=== PATIENT | female | born 1935 | race Caucasian/White ===

== ENCOUNTER 2018-05-28 17:13 | Inpatient (IN) | payer OTHER ==
[~2018-05-28] VITALS: Ht 177.8 cm; Wt 74.7 kg
[~2018-05-28 17:13] MED LIST: ALEN70SO OR; ALLO100T PO; CHOL100047 PO; EZET10TA38 PO; HYDR500T13 PO; INDA1.252 PO; LEVO500T21 PO; LOS50T PO; METF-370 PO; METO25TA62 PO; TRAZ50TA2 PO
[2018-05-28] MEDS ORDERED: SODIUM CHLORIDE 0.9% 1,000 ML IVB ONE (17:44)
[2018-05-28 18:03] LABS: Basophils # (auto) 0 uL; Basophils % (auto) 0.2 % (0.0-2.0); Eosinophils # (auto) 0.1 uL; Eosinophils % (auto) 0.3 % (0.0-7.0); Hematocrit 36.1 % (36.0-46.0); Hemoglobin 12.1 g/dL (12.2-16.2); Lymphocytes # (auto) 0.7 uL; Lymphocytes % (auto) 3.6 % (10.0-50.0); Mean Corpuscular Hgb Conc. 33.5 g/dL (32.0-36.0); Mean Corpuscular Volume 86.6 fL (80.0-100.0); Monocytes # (auto) 1.8 uL; Neutrophils # (auto) 17.4 uL; Neutrophils % (auto) 86.9 % (37.0-80.0); Platelet Count (auto) 406 10^3/uL (140-450); Red Blood Cells 4.17 10^6/uL (4.0-5.20); Red Cell Distribution Width 13.3 % (11.8-14.3); White Blood Cell 20.1 10^3/uL (4.4-10.8)
[2018-05-28 18:18] LABS: INR 0.98 (0.9-1.15); Partial Thromboplastin Time 29.6 sec (23.78-33.04); Prothrombin Time 10.5 sec (9.27-12.13)
[2018-05-28] MEDS ORDERED: ONDANSETRON HCL 4 MG/2 ML VIAL IV ONE ×3 (18:30→20:45)
[2018-05-28 18:39] LABS: Albumin 3.5 g/dL (3.4-5.0); BUN/Creatinine Ratio 15.5; Bilirubin, Total 0.9 mg/dL (0.2-1.0); Calcium 8.5 mg/dL (8.5-10.1); Magnesium 2.2 mg/dL (1.6-2.6); Potassium 3.5 mmol/L (3.5-5.1); Total Protein 7.6 g/dL (6.4-8.2)
[2018-05-28] MEDS ORDERED: ACETAMINOPHEN 325 MG TAB PO ONE (18:45)
[2018-05-28] MEDS ORDERED: ASPirin-EC 81 mg tab PO ONE (19:00)
[2018-05-28] MEDS ORDERED: MORPHINE SULF INJ 2 MG/ML SYRINGE 1ML IV ONE ×2 (19:00→20:45)
[2018-05-28] MEDS ORDERED: LACTULOSE 20Gm/30ML SOLN PO PRN (20:45)
[2018-05-28] MEDS ORDERED: NITROGLYCERIN 0.4 MG SL TAB SL PRN (20:45)
[2018-05-28] MEDS ORDERED: LORazepam 0.5 MG TAB PO PRN (20:45)
[2018-05-28] MEDS ORDERED: HEPARIN SODIUM (PORCINE) 5000 UNITS/ML 1ML VIAL ONE (20:52)
[2018-05-28] MEDS ORDERED: HEPARIN SODIUM (PORCINE) 5000 UNITS/ML 1ML VIAL IV ONE ×2 (21:00→23:00)
[2018-05-28 21:04] LABS: Urine Bacteria NONE SEEN /hpf (None Seen); Urine Blood 1+ /uL (Negative); Urine Specific Gravity 1.015 (1.001-1.035); Urine WBC 1569 /hpf (0 - 5); Urine WBC Clumps PRESENT /hpf (None Seen)
[2018-05-28 21:13] LABS: Alcohol, Urine < 3.0 mg/dL (0-5); Amphetamine Screen, Urine NEGATIVE (NEGATIVE); Barbiturate Scree,Urine NEGATIVE (NEGATIVE); Benzodiazephine Screen, Urine NEGATIVE (NEGATIVE); Cannabinoid Screen, Urine NEGATIVE (NEGATIVE); Cocaine Screen, Urine NEGATIVE (NEGATIVE); Opiate Scree,Urine POSITIVE (NEGATIVE); Phencyclidine Screen, Urine NEGATIVE (NEGATIVE)
[2018-05-28] MEDS ORDERED: ANGIOMAX 250 MG VIAL IV ONE (21:27)
[2018-05-28] MEDS ORDERED: LIDOCAINE W/ EPINEPHRINE 2% INJ 20ML VIAL ONE (21:27)
[2018-05-28] MEDS ORDERED: SODIUM CHL 0.9% 50 ML ONE (21:27)
[2018-05-28] MEDS ORDERED: fentaNYL CITRATE 100 MCG/2 ML VL ONE (21:27)
[2018-05-28] MEDS ORDERED: MIDAZOLAM HCL 1MG/1ML-2 ML VIAL ONE (21:27)
[2018-05-28] MEDS ORDERED: IODIXANOL 320MG/ML 100ML BTL IV ONE (21:27)
[2018-05-28] MEDS ORDERED: LIDOCAINE 2%HCL (LOCAL ANESTH.) INJ 10ml MDV ONE (21:28)
[2018-05-28] MEDS ORDERED: ENOXAPARIN SOD 30 MG/0.3 ML SYRINGE IV SCH (22:00)
[2018-05-28] MEDS ORDERED: EPINEPHrine HCL 1 MG/10 ML SYRG ONE (22:04)
[2018-05-28] MEDS ORDERED: ATROPINE SULF 1 MG/10ml SYR ONE (22:04)
[2018-05-28] MEDS: cefTRIAXone 1GM/10ml IVPUSH 10 ML IV SCH (22:15)
[2018-05-28 22:20] LABS: BUN/Creatinine Ratio 17.3; Calcium 7.8 mg/dL (8.5-10.1); Potassium 3.4 mmol/L (3.5-5.1)
[2018-05-28] MEDS ORDERED: HEPARIN DRIP/D5W 100UNITS/ML 250 ML IV SCH ×2 (22:58→23:02)
[2018-05-28] MEDS ORDERED: cefTRIAXone 1GM/10ml IVPUSH 10 ML IV ONE (23:15)
[2018-05-28 23:56] LABS: Basophils # (auto) 0 uL; Basophils % (auto) 0.1 % (0.0-2.0); Eosinophils # (auto) 0 uL; Eosinophils % (auto) 0.1 % (0.0-7.0); Hematocrit 31.6 % (36.0-46.0); Hemoglobin 10.4 g/dL (12.2-16.2); Lymphocytes # (auto) 0.9 uL; Lymphocytes % (auto) 4.6 % (10.0-50.0); Mean Corpuscular Hemoglobin 28.7 pg (28.0-32.0); Mean Corpuscular Hgb Conc. 32.9 g/dL (32.0-36.0); Mean Corpuscular Volume 87.2 fL (80.0-100.0); Monocytes # (auto) 1.9 uL; Monocytes % (auto) 10.1 % (0.0-12.0); Neutrophils # (auto) 15.9 uL; Neutrophils % (auto) 85.1 % (37.0-80.0); Platelet Count (auto) 353 10^3/uL (140-450); Red Blood Cells 3.62 10^6/uL (4.0-5.20); Red Cell Distribution Width 13.3 % (11.8-14.3); White Blood Cell 18.6 10^3/uL (4.4-10.8)
[2018-05-29] VITALS (42 sets, daily range): BP systolic 84–128; BP diastolic 30–89
[2018-05-29 00:11] LABS: INR 1.45 (0.9-1.15); Prothrombin Time 15.2 sec (9.27-12.13)
[2018-05-29] MEDS ORDERED: ONDANSETRON HCL 4 MG/2 ML VIAL ONE (02:57)
[2018-05-29] MEDS: ATORVASTATIN 20 MG TAB PO SCH ×2 (03:19→21:46)
[2018-05-29] MEDS: traZODone HCL 50 MG TAB PO SCH ×2 (03:19→21:46)
[2018-05-29] MEDS: METOPROLOL TARTRATE 25 MG TAB PO SCH ×2 (03:19→04:15)
[2018-05-29] MEDS ORDERED: NOREPINEPHRINE 8 MG/250ML KIT 250 ML IV ONE (04:53)
[2018-05-29 05:30] LABS: Basophils # (auto) 0.1 uL; Basophils % (auto) 0.3 % (0.0-2.0); Eosinophils # (auto) 0 uL; Hemoglobin 10.7 g/dL (12.2-16.2); Lymphocytes # (auto) 0.8 uL; Lymphocytes % (auto) 4.3 % (10.0-50.0); Mean Corpuscular Hgb Conc. 32.6 g/dL (32.0-36.0); Mean Corpuscular Volume 89.1 fL (80.0-100.0); Monocytes # (auto) 1.1 uL; Monocytes % (auto) 6.2 % (0.0-12.0); Neutrophils # (auto) 15.8 uL; Neutrophils % (auto) 89.2 % (37.0-80.0); Platelet Count (auto) 364 10^3/uL (140-450); Red Cell Distribution Width 13.6 % (11.8-14.3); White Blood Cell 17.8 10^3/uL (4.4-10.8)
[2018-05-29 05:36] LABS: INR 1.12 (0.9-1.15); Partial Thromboplastin Time 46.4 sec (23.78-33.04); Prothrombin Time 11.9 sec (9.27-12.13)
[2018-05-29 05:39] LABS: BUN/Creatinine Ratio 16.2; Calcium 7.8 mg/dL (8.5-10.1); Potassium 3.6 mmol/L (3.5-5.1)
[2018-05-29] MEDS: ONDANSETRON HCL 4 MG/2 ML VIAL IV PRN ×2 (06:29→13:49)
[2018-05-29] MEDS ORDERED: FUROSEMIDE 20 MG/2 ML VIAL IV ONE (07:00)
[2018-05-29] MEDS: NOREPINEPHRINE 8 MG/250ML KIT 250 ML IV SCH (07:45)
[2018-05-29] MEDS: HEPARIN DRIP/D5W 100UNITS/ML 250 ML IV SCH ×2 (07:45→16:27)
[2018-05-29] MEDS: cefTRIAXone 1GM/10ml IVPUSH 10 ML IV SCH (08:52)
[2018-05-29] MEDS: MORPHINE SULF INJ 2 MG/ML SYRINGE 1ML IV PRN (10:32)
[2018-05-29 13:59] LABS: INR 1.06 (0.9-1.15); Partial Thromboplastin Time 49.7 sec (23.78-33.04); Prothrombin Time 11.3 sec (9.27-12.13)
[2018-05-29 20:29] LABS: INR 1.07 (0.9-1.15); Partial Thromboplastin Time 60.3 sec (23.78-33.04); Prothrombin Time 11.4 sec (9.27-12.13)
[2018-05-30] VITALS (13 sets, daily range): BP systolic 89–141; BP diastolic 28–101
[2018-05-30] MEDS: MORPHINE SULF INJ 2 MG/ML SYRINGE 1ML IV PRN ×2 (00:13→13:22)
[2018-05-30 02:09] LABS: Basophils # (auto) 0 uL; Basophils % (auto) 0.2 % (0.0-2.0); Eosinophils # (auto) 0.1 uL; Eosinophils % (auto) 0.3 % (0.0-7.0); Hematocrit 27.2 % (36.0-46.0); Lymphocytes # (auto) 0.9 uL; Lymphocytes % (auto) 6.1 % (10.0-50.0); Monocytes # (auto) 1.5 uL; Monocytes % (auto) 10.3 % (0.0-12.0); Neutrophils # (auto) 12.3 uL; Neutrophils % (auto) 83.1 % (37.0-80.0); Platelet Count (auto) 272 10^3/uL (140-450); Red Blood Cells 3.09 10^6/uL (4.0-5.20); Red Cell Distribution Width 13.5 % (11.8-14.3); White Blood Cell 14.8 10^3/uL (4.4-10.8)
[2018-05-30 02:28] LABS: INR 1.08 (0.9-1.15); Partial Thromboplastin Time 67.4 sec (23.78-33.04); Prothrombin Time 11.5 sec (9.27-12.13)
[2018-05-30] MEDS: NOREPINEPHRINE 8 MG/250ML KIT 250 ML IV SCH (08:00)
[2018-05-30] MEDS: HEPARIN DRIP/D5W 100UNITS/ML 250 ML IV SCH (08:12)
[2018-05-30 08:37] LABS: INR 1.04 (0.9-1.15); Partial Thromboplastin Time 64.7 sec (23.78-33.04); Prothrombin Time 11.1 sec (9.27-12.13)
[2018-05-30] MEDS: cefTRIAXone 1GM/10ml IVPUSH 10 ML IV SCH (08:59)
[2018-05-30] MEDS ORDERED: ERTAPENEM SOD INJ 1 GM in SODIUM CHL 0.9% 50 ML IV SCH (11:00)
[2018-05-30] MEDS ORDERED: IPRATROPIUM BROM 0.5 MG/2.5ML INH SOL ONE (11:26)
[2018-05-30] MEDS ORDERED: ALBUTEROL SULF 2.5 MG/0.5ML(0.5%) NEB SOLN ONE (11:26)
[2018-05-30] MEDS ORDERED: ALBUTEROL SULF 2.5 MG/0.5ML(0.5%) NEB SOLN NEB PRN (11:30)
[2018-05-30] MEDS ORDERED: IPRATROPIUM BROM 0.5 MG/2.5ML INH SOL NEB PRN (11:30)
== END 2018-05-30 14:35 | disposition short-term general hospital (02) | DRG 270 ==
LOC: ER 17:17 → TELE 17:18 → ICU WEST 23:44
PROVIDERS: ADMIT Nurse Practitioner Family; ATTEND Nurse Practitioner Family
PROC: 5A02210 Assistance with Cardiac Output using Balloon Pump, Continuous (ICD-10-PCS; principal; 2018-05-28)
PROC: 02703ZZ Dilation of Coronary Artery, One Artery, Percutaneous Approach (ICD-10-PCS; 2018-05-28)
PROC: 4A023N7 Measurement of Cardiac Sampling and Pressure, Left Heart, Percutaneous Approach (ICD-10-PCS; 2018-05-28)
PROC: B2111ZZ Fluoroscopy of Multiple Coronary Arteries using Low Osmolar Contrast (ICD-10-PCS; 2018-05-28)
DX: I21.4 Non-ST elevation (NSTEMI) myocardial infarction (principal); I50.43 Acute on chronic combined systolic (congestive) and diastolic (congestive) heart failure; N39.0 Urinary tract infection, site not specified; R65.10 Systemic inflammatory response syndrome (SIRS) of non-infectious origin without acute organ dysfunction; E11.22 Type 2 diabetes mellitus with diabetic chronic kidney disease; E66.9 Obesity, unspecified; E78.5 Hyperlipidemia, unspecified; I12.9 Hypertensive chronic kidney disease with stage 1 through stage 4 chronic kidney disease, or unspecified chronic kidney disease; I25.10 Atherosclerotic heart disease of native coronary artery without angina pectoris; I35.0 Nonrheumatic aortic (valve) stenosis; M81.0 Age-related osteoporosis without current pathological fracture; M10.9 Gout, unspecified; G47.00 Insomnia, unspecified; N18.9 Chronic kidney disease, unspecified; Z79.4 Long term (current) use of insulin; Z82.49 Family history of ischemic heart disease and other diseases of the circulatory system; Z85.3 Personal history of malignant neoplasm of breast; Z90.13 Acquired absence of bilateral breasts and nipples; Z95.1 Presence of aortocoronary bypass graft; Z82.5 Family history of asthma and other chronic lower respiratory diseases; Z84.89 Family history of other specified conditions; Z68.23 Body mass index [BMI] 23.0-23.9, adult
CPT/HCPCS: 33967; 36415; 51702; 70450; 71045; 80048; 80053; 80061; 80307; 81001; 82550; 83036; 83735; 84484; 85025; 85610; 85652; 85730; 86850; 86900; 86901; 87040; 87081; 87086; 87088; 87186; 92920; 93005; 93306; 93458; 94640; 96361; 96374; 96375; 96376; 99152; A6257; C1887; J0696; J1335; J2001; J2250; J2405; Q9967

== ENCOUNTER 2018-06-12 17:51 | Inpatient (IN) | payer OTHER ==
[~2018-06-12] VITALS: Ht 147.3 cm; Wt 68.4 kg
[2018-06-12] MEDS ORDERED: MORPHINE SULFATE 4 MG/ML SYR/VIAL ONE ×2 (17:58→18:10)
[2018-06-12 18:15] LABS: Eosinophils # (auto) 0.6 uL; Neutrophils # (auto) 13.7 uL
[2018-06-12] MEDS ORDERED: MORPHINE SULFATE 4 MG/ML SYR/VIAL IV ONE ×2 (18:15)
[2018-06-12] MEDS ORDERED: ONDANSETRON HCL 4 MG/2 ML VIAL IV ONE (18:15)
[2018-06-12 18:17] LABS: Basophils # (auto) 0.3 uL; Basophils % (auto) 1.4 % (0.0-2.0); Eosinophils % (auto) 2.9 % (0.0-7.0); Hematocrit 34.3 % (36.0-46.0); Hemoglobin 11.6 g/dL (12.2-16.2); Lymphocytes # (auto) 4.4 uL; Lymphocytes % (auto) 20.8 % (10.0-50.0); Mean Corpuscular Hemoglobin 29.1 pg (28.0-32.0); Mean Corpuscular Hgb Conc. 33.7 g/dL (32.0-36.0); Mean Corpuscular Volume 86.4 fL (80.0-100.0); Monocytes # (auto) 2.2 uL; Monocytes % (auto) 10.4 % (0.0-12.0); Neutrophils % (auto) 64.5 % (37.0-80.0); Nucleated Red Blood Cells % 0.1 %; Red Blood Cells 3.97 10^6/uL (4.0-5.20); Red Cell Distribution Width 13.4 % (11.8-14.3); White Blood Cell 21.3 10^3/uL (4.4-10.8)
[2018-06-12 18:19] LABS: Platelet Count (auto) 1045 10^3/uL (140-450)
[2018-06-12] MEDS ORDERED: LIDOCAINE 2% (LOCAL ANESTH.) PF 5ml SDV ONE (18:22)
[2018-06-12] MEDS ORDERED: IODIXANOL 320MG/ML 100ML BTL IV ONE (18:22)
[2018-06-12] MEDS ORDERED: SODIUM CHL 0.9% 50 ML ONE (18:25)
[2018-06-12] MEDS ORDERED: fentaNYL CITRATE 100 MCG/2 ML VL ONE (18:25)
[2018-06-12] MEDS ORDERED: ATROPINE SULF 1 MG/10ml SYR ONE (18:25)
[2018-06-12] MEDS ORDERED: ANGIOMAX 250 MG VIAL IV ONE (18:25)
[2018-06-12] MEDS ORDERED: EPINEPHrine HCL 1 MG/10 ML SYRG ONE (18:25)
[2018-06-12] MEDS ORDERED: MIDAZOLAM HCL 1MG/1ML-2 ML VIAL ONE (18:25)
[2018-06-12 18:30] LABS: Partial Thromboplastin Time 28.4 sec (23.78-33.04); Prothrombin Time 10.7 sec (9.27-12.13)
[2018-06-12 18:37] LABS: Albumin 3.7 g/dL (3.4-5.0); BUN/Creatinine Ratio 17.9; Bilirubin, Total 0.5 mg/dL (0.2-1.0); Calcium 9.5 mg/dL (8.5-10.1); Magnesium 2.2 mg/dL (1.6-2.6); Potassium 4.5 mmol/L (3.5-5.1); Total Protein 8.8 g/dL (6.4-8.2)
[2018-06-12] MEDS ORDERED: hydrALAZINE HCL 20 MG/ML VL ONE (18:44)
[2018-06-12] MEDS ORDERED: METOPROLOL TARTRATE 1MG/1ML-5ML VIAL IV ONE (18:53)
[2018-06-12] MEDS ORDERED: HYDROXYUREA 500 MG CAP PO ONE (19:00)
[2018-06-12] MEDS ORDERED: cefTRIAXone 1GM/10ml IVPUSH 10 ML IV ONE ×2 (19:00→19:15)
[2018-06-12] MEDS ORDERED: CLOPIDOGREL BISULFATE 75 MG TAB ONE (19:14)
[2018-06-12] MEDS ORDERED: DEXTROSE (50%) 50ML SYRG IV PRN (19:15)
[2018-06-12] MEDS ORDERED: NITROGLYCERIN 0.4 MG SL TAB SL PRN (19:15)
[2018-06-12] MEDS ORDERED: HYDROcodone-ACET 5/325MG TAB PO PRN (19:15)
[2018-06-12] MEDS ORDERED: LACTULOSE 20Gm/30ML SOLN PO PRN (19:15)
[2018-06-12] MEDS ORDERED: MORPHINE SULF INJ 2 MG/ML SYRINGE 1ML IV PRN ×2 (19:15)
[2018-06-12] MEDS ORDERED: PROMETHAZINE HCL 25 MG/ML 1ML IV PRN (19:15)
[2018-06-12] MEDS ORDERED: LORazepam 0.5 MG TAB PO PRN (19:15)
[2018-06-12] MEDS ORDERED: ACETAMINOPHEN 500 MG TAB PO PRN (19:15)
[2018-06-12 19:45] VITALS: BP 104/45
[2018-06-12] MEDS ORDERED: SODIUM CHLORIDE 0.9% 1,000 ML IV SCH (19:59)
[2018-06-12 20:00] VITALS: BP 104/45
[2018-06-12 20:30] VITALS: BP 113/56
[2018-06-12 20:45] VITALS: BP 113/56
[2018-06-12] MEDS: ATORVASTATIN 20 MG TAB PO SCH (21:52)
[2018-06-12] MEDS: InsuLIN REG 1unit/0.01ml Soln (100units/ml) SC SCH (21:53)
[2018-06-12] MEDS: ACCU-CHEK COMFORT CURVE STRIP VI SCH (21:53)
[2018-06-12] MEDS ORDERED: ENOXAPARIN SOD 80 MG/0.8ML SYRINGE SC SCH (22:00)
[2018-06-12] MEDS ORDERED: traZODone HCL 50 MG TAB PO SCH (22:00)
[2018-06-12 23:50] VITALS: BP 116/48
[2018-06-13] MEDS ORDERED: diphenhdrAMINE HCL 50 MG/1 ML VL ONE (02:44)
[2018-06-13] MEDS ORDERED: diphenhdrAMINE HCL 50 MG/1 ML VL IV ONE (02:45)
[2018-06-13 03:25] LABS: Urine Bacteria MANY /hpf (None Seen); Urine Blood Negative /uL (Negative); Urine Hyaline Cast MOD /lpf (0 - 2); Urine Mucus MANY (None Seen); Urine WBC 204 /hpf (0 - 5); Urine WBC Clumps PRESENT /hpf (None Seen)
[2018-06-13 03:27] LABS: Urine Specific Gravity 1.056 (1.001-1.035)
[2018-06-13 03:58] VITALS: BP 115/42
[2018-06-13] MEDS: InsuLIN REG 1unit/0.01ml Soln (100units/ml) SC SCH ×4 (06:22→21:56)
[2018-06-13] MEDS: ACCU-CHEK COMFORT CURVE STRIP VI SCH ×4 (06:22→21:56)
[2018-06-13 07:09] LABS: Basophils # (auto) 0 uL; Basophils % (auto) 0.1 % (0.0-2.0); Eosinophils # (auto) 0.5 uL; Eosinophils % (auto) 3.2 % (0.0-7.0); Hematocrit 28.1 % (36.0-46.0); Hemoglobin 9.3 g/dL (12.2-16.2); Lymphocytes # (auto) 1.3 uL; Lymphocytes % (auto) 8.4 % (10.0-50.0); Mean Corpuscular Hgb Conc. 33.3 g/dL (32.0-36.0); Mean Corpuscular Volume 87.1 fL (80.0-100.0); Monocytes % (auto) 6.2 % (0.0-12.0); Neutrophils # (auto) 12.8 uL; Neutrophils % (auto) 82.1 % (37.0-80.0); Platelet Count (auto) 747 10^3/uL (140-450); Red Blood Cells 3.22 10^6/uL (4.0-5.20); Red Cell Distribution Width 13.3 % (11.8-14.3); White Blood Cell 15.6 10^3/uL (4.4-10.8)
[2018-06-13 07:16] LABS: Albumin 2.9 g/dL (3.4-5.0); Bilirubin, Total 0.4 mg/dL (0.2-1.0); Calcium 8.1 mg/dL (8.5-10.1); Potassium 3.9 mmol/L (3.5-5.1); Total Protein 6.8 g/dL (6.4-8.2)
[2018-06-13 08:00] VITALS: BP 111/62
[2018-06-13] MEDS ORDERED: cefTRIAXone 1GM/10ml IVPUSH 10 ML IV SCH ×2 (09:00)
[2018-06-13] MEDS: METOPROLOL SUCCINATE XL 50 MG TAB PO SCH (10:00)
[2018-06-13] MEDS: LOSARTAN POTASSIUM 50 MG TAB PO SCH (10:00)
[2018-06-13] MEDS ORDERED: PANTOPRAZOLE 40 MG TAB PO SCH (10:00)
[2018-06-13] MEDS: ENOXAPARIN SOD 80 MG/0.8ML SYRINGE SC SCH (10:10)
[2018-06-13] MEDS: ALLOPURINOL 100 MG TAB PO SCH (10:11)
[2018-06-13] MEDS: CLOPIDOGREL BISULFATE 75 MG TAB PO SCH (10:11)
[2018-06-13] MEDS: ASPirin 81 mg TAB PO SCH (10:11)
[2018-06-13] MEDS: HYDROXYUREA 500 MG CAP PO SCH (10:15)
[2018-06-13] MEDS ORDERED: diphenhdrAMINE HCL 50 MG/1 ML VL IV PRN (10:30)
[2018-06-13] MEDS: methylPREDNISolone SOD SUCC 125 MG/2 ML VL IV SCH ×2 (11:00→21:56)
[2018-06-13 12:00] VITALS: BP 103/50
[2018-06-13 13:06] LABS: Hemoglobin 8.9 g/dL (12.2-16.2)
[2018-06-13 13:15] LABS: Hematocrit 27.1 % (36.0-46.0)
[2018-06-13] MEDS ORDERED: ATOR20TA50 PO (15:00)
[2018-06-13] MEDS ORDERED: CLOP75TA41 PO (15:00)
[2018-06-13] MEDS ORDERED: FURO40TA4 PO (15:00)
[2018-06-13] MEDS ORDERED: FENO134C PO (15:00)
[2018-06-13] MEDS ORDERED: LACT10SO3 PO (15:00)
[2018-06-13] MEDS ORDERED: LORA1TAB12 PO (15:00)
[2018-06-13] MEDS ORDERED: POTA10TA51 PO (15:00)
[2018-06-13] MEDS ORDERED: METF-370 PO (15:00)
[2018-06-13] MEDS ORDERED: hydrOXYzine 25 MG TAB or CAP PO PRN (15:45)
[2018-06-13 16:00] VITALS: BP 131/48
[2018-06-13 20:00] VITALS: BP 125/58
[2018-06-13] MEDS: ATORVASTATIN 20 MG TAB PO SCH (21:03)
[2018-06-13] MEDS: TEMAZEPAM 15 MG CAP PO PRN (21:03)
[2018-06-13 22:05] LABS: % Iron Saturation 17.1 % (15-50)
[2018-06-14] VITALS: BP 118/62
[2018-06-14 04:00] VITALS: BP 121/58
[2018-06-14 05:41] LABS: BUN/Creatinine Ratio 17.2; Calcium 8.1 mg/dL (8.5-10.1); Potassium 4.6 mmol/L (3.5-5.1)
[2018-06-14] MEDS: ACCU-CHEK COMFORT CURVE STRIP VI SCH ×4 (06:20→21:29)
[2018-06-14] MEDS: InsuLIN REG 1unit/0.01ml Soln (100units/ml) SC SCH ×4 (06:21→21:29)
[2018-06-14 07:50] VITALS: BP 138/65
[2018-06-14] MEDS: LOSARTAN POTASSIUM 50 MG TAB PO SCH (10:00)
[2018-06-14] MEDS: methylPREDNISolone SOD SUCC 125 MG/2 ML VL IV SCH ×2 (10:32→21:34)
[2018-06-14] MEDS: ASPirin 81 mg TAB PO SCH (10:32)
[2018-06-14] MEDS: FAMOTIDINE 20 MG TAB PO SCH (10:32)
[2018-06-14] MEDS: ALLOPURINOL 100 MG TAB PO SCH (10:33)
[2018-06-14] MEDS: ENOXAPARIN SOD 80 MG/0.8ML SYRINGE SC SCH (10:33)
[2018-06-14] MEDS: CLOPIDOGREL BISULFATE 75 MG TAB PO SCH (10:33)
[2018-06-14] MEDS: METOPROLOL SUCCINATE XL 50 MG TAB PO SCH (10:35)
[2018-06-14 10:48] LABS: Basophils # (auto) 0 uL; Basophils % (auto) 0.1 % (0.0-2.0); Eosinophils # (auto) 0 uL; Hemoglobin 9.1 g/dL (12.2-16.2); Monocytes # (auto) 0.3 uL; Red Blood Cells 3.09 10^6/uL (4.0-5.20)
[2018-06-14 10:56] LABS: Hematocrit 27.1 % (36.0-46.0); Lymphocytes # (auto) 0.6 uL; Lymphocytes % (auto) 3.9 % (10.0-50.0); Mean Corpuscular Hemoglobin 29.5 pg (28.0-32.0); Mean Corpuscular Hgb Conc. 33.6 g/dL (32.0-36.0); Mean Corpuscular Volume 87.8 fL (80.0-100.0); Monocytes % (auto) 1.9 % (0.0-12.0); Neutrophils # (auto) 13.6 uL; Neutrophils % (auto) 94.1 % (37.0-80.0); Platelet Count (auto) 733 10^3/uL (140-450); Red Cell Distribution Width 13.7 % (11.8-14.3); White Blood Cell 14.5 10^3/uL (4.4-10.8)
[2018-06-14 11:53] VITALS: BP 123/59
[2018-06-14] MEDS: HYDROXYUREA 500 MG CAP PO SCH (12:01)
[2018-06-14] MEDS ORDERED: FUROSEMIDE 20 MG/2 ML VIAL IV ONE (15:00)
[2018-06-14] MEDS ORDERED: POTASSIUM CHL 20 Meq TABLET PO ONE (15:00)
[2018-06-14] MEDS: LEVOFLOXACIN 500MG 100 ML IV SCH (15:14)
[2018-06-14 15:30] VITALS: BP 129/61
[2018-06-14 20:00] VITALS: BP 141/69
[2018-06-14] MEDS: ATORVASTATIN 20 MG TAB PO SCH (21:34)
[2018-06-14] MEDS: FUROSEMIDE 20 MG/2 ML VIAL IV SCH (21:34)
[2018-06-14] MEDS: TEMAZEPAM 15 MG CAP PO PRN (21:34)
[2018-06-14] MEDS: POTASSIUM CHL 20 Meq TABLET PO SCH (21:34)
[2018-06-15] VITALS (16 sets, daily range): BP systolic 123–144; BP diastolic 47–87
[2018-06-15 05:31] LABS: Eosinophils # (auto) 0 uL; Lymphocytes # (auto) 0.5 uL
[2018-06-15 05:35] LABS: Basophils # (auto) 0.1 uL; Basophils % (auto) 0.4 % (0.0-2.0); Hematocrit 29.8 % (36.0-46.0); Hemoglobin 9.6 g/dL (12.2-16.2); Mean Corpuscular Hemoglobin 28.5 pg (28.0-32.0); Mean Corpuscular Hgb Conc. 32.3 g/dL (32.0-36.0); Mean Corpuscular Volume 88.2 fL (80.0-100.0); Monocytes # (auto) 0.3 uL; Neutrophils # (auto) 15.2 uL; Neutrophils % (auto) 94.6 % (37.0-80.0); Red Blood Cells 3.38 10^6/uL (4.0-5.20); Red Cell Distribution Width 13.5 % (11.8-14.3); White Blood Cell 16.1 10^3/uL (4.4-10.8)
[2018-06-15 05:38] LABS: Platelet Count (auto) 770 10^3/uL (140-450)
[2018-06-15 05:46] LABS: Calcium 8.7 mg/dL (8.5-10.1); Potassium 4.7 mmol/L (3.5-5.1)
[2018-06-15 05:48] LABS: BUN/Creatinine Ratio 25.6
[2018-06-15] MEDS: ACCU-CHEK COMFORT CURVE STRIP VI SCH ×4 (05:59→21:30)
[2018-06-15] MEDS: InsuLIN REG 1unit/0.01ml Soln (100units/ml) SC SCH ×4 (05:59→21:44)
[2018-06-15 06:25] LABS: INR 1.01 (0.9-1.15); Prothrombin Time 10.8 sec (9.27-12.13)
[2018-06-15 07:21] LABS: Partial Thromboplastin Time 27.1 sec (23.78-33.04)
[2018-06-15] MEDS ORDERED: HYDROXYUREA 500 MG CAP PO ONE (08:45)
[2018-06-15] MEDS ORDERED: LIDOCAINE 2%HCL (LOCAL ANESTH.) INJ 10ml MDV ONE (09:13)
[2018-06-15] MEDS ORDERED: IODIXANOL 320MG/ML 100ML BTL IV ONE (09:13)
[2018-06-15] MEDS ORDERED: ANGIOMAX 250 MG VIAL IV ONE (09:27)
[2018-06-15] MEDS ORDERED: MIDAZOLAM HCL 1MG/1ML-2 ML VIAL ONE (09:27)
[2018-06-15] MEDS ORDERED: SODIUM CHL 0.9% 50 ML ONE (09:27)
[2018-06-15] MEDS ORDERED: fentaNYL CITRATE 100 MCG/2 ML VL ONE (09:27)
[2018-06-15] MEDS: ENOXAPARIN SOD 80 MG/0.8ML SYRINGE SC SCH (10:00)
[2018-06-15] MEDS: POTASSIUM CHL 20 Meq TABLET PO SCH ×2 (10:00→21:30)
[2018-06-15] MEDS ORDERED: POTASSIUM CHL 20 Meq TABLET PO SCH (10:00)
[2018-06-15] MEDS: ALLOPURINOL 100 MG TAB PO SCH (10:00)
[2018-06-15] MEDS: METOPROLOL SUCCINATE XL 50 MG TAB PO SCH (10:00)
[2018-06-15] MEDS: ASPirin 81 mg TAB PO SCH ×2 (10:00→10:46)
[2018-06-15] MEDS: HYDROXYUREA 500 MG CAP PO SCH (10:00)
[2018-06-15] MEDS: CLOPIDOGREL BISULFATE 75 MG TAB PO SCH ×2 (10:00→10:46)
[2018-06-15] MEDS: LEVOFLOXACIN 500MG 100 ML IV SCH (10:00)
[2018-06-15] MEDS: FUROSEMIDE 20 MG/2 ML VIAL IV SCH ×2 (10:00→21:30)
[2018-06-15] MEDS: LOSARTAN POTASSIUM 50 MG TAB PO SCH (10:00)
[2018-06-15] MEDS: FAMOTIDINE 20 MG TAB PO SCH (10:00)
[2018-06-15] MEDS: SODIUM FERR GLUC 62.5MG/5ML 125 MG in SODIUM CHL 0.9% 100 ML IV SCH (12:07)
[2018-06-15] MEDS: ERTAPENEM SOD INJ 1 GM in SODIUM CHL 0.9% 50 ML IV SCH (14:17)
[2018-06-15] MEDS: ATORVASTATIN 20 MG TAB PO SCH (21:30)
[2018-06-16 03:53] VITALS: BP 110/59
[2018-06-16 05:59] LABS: Potassium 4.5 mmol/L (3.5-5.1)
[2018-06-16 06:01] LABS: BUN/Creatinine Ratio 31.4; Calcium 8.4 mg/dL (8.5-10.1); Magnesium 2.3 mg/dL (1.6-2.6)
[2018-06-16] MEDS: ACCU-CHEK COMFORT CURVE STRIP VI SCH ×4 (06:42→22:29)
[2018-06-16] MEDS: InsuLIN REG 1unit/0.01ml Soln (100units/ml) SC SCH ×4 (06:42→22:28)
[2018-06-16 07:44] LABS: Basophils # (auto) 0 uL; Eosinophils # (auto) 0 uL; Lymphocytes # (auto) 0.8 uL; Neutrophils # (auto) 12.1 uL
[2018-06-16 07:46] LABS: Basophils % (auto) 0.1 % (0.0-2.0); Lymphocytes % (auto) 5.3 % (10.0-50.0); Mean Corpuscular Hemoglobin 29.3 pg (28.0-32.0); Mean Corpuscular Hgb Conc. 33.3 g/dL (32.0-36.0); Monocytes # (auto) 1.3 uL; Neutrophils % (auto) 85.6 % (37.0-80.0); Platelet Count (auto) 700 10^3/uL (140-450); Red Blood Cells 3.07 10^6/uL (4.0-5.20); Red Cell Distribution Width 13.5 % (11.8-14.3); White Blood Cell 14.1 10^3/uL (4.4-10.8)
[2018-06-16 08:00] VITALS: BP 123/62
[2018-06-16] MEDS: METOPROLOL SUCCINATE XL 50 MG TAB PO SCH (10:00)
[2018-06-16] MEDS: HYDROXYUREA 500 MG CAP PO SCH (10:00)
[2018-06-16] MEDS: LOSARTAN POTASSIUM 50 MG TAB PO SCH (10:00)
[2018-06-16] MEDS: ERTAPENEM SOD INJ 1 GM in SODIUM CHL 0.9% 50 ML IV SCH (10:25)
[2018-06-16] MEDS: ENOXAPARIN SOD 80 MG/0.8ML SYRINGE SC SCH (10:25)
[2018-06-16] MEDS: FAMOTIDINE 20 MG TAB PO SCH (10:25)
[2018-06-16] MEDS: ASPirin 81 mg TAB PO SCH (10:26)
[2018-06-16] MEDS: POTASSIUM CHL 20 Meq TABLET PO SCH ×2 (10:26→22:28)
[2018-06-16] MEDS: ALLOPURINOL 100 MG TAB PO SCH (10:26)
[2018-06-16] MEDS: CLOPIDOGREL BISULFATE 75 MG TAB PO SCH (10:26)
[2018-06-16] MEDS: FUROSEMIDE 20 MG/2 ML VIAL IV SCH ×2 (10:28→22:28)
[2018-06-16 11:50] VITALS: BP 125/63
[2018-06-16] MEDS: SODIUM FERR GLUC 62.5MG/5ML 125 MG in SODIUM CHL 0.9% 100 ML IV SCH ×2 (12:00→14:50)
[2018-06-16 15:51] VITALS: BP 131/86
[2018-06-16 19:50] VITALS: BP 135/94
[2018-06-16] MEDS: ATORVASTATIN 20 MG TAB PO SCH (22:28)
[2018-06-17] VITALS: BP 128/67
[2018-06-17 04:00] VITALS: BP 135/65
[2018-06-17] MEDS: ACCU-CHEK COMFORT CURVE STRIP VI SCH ×3 (07:00→17:00)
[2018-06-17] MEDS: InsuLIN REG 1unit/0.01ml Soln (100units/ml) SC SCH ×3 (07:00→17:00)
[2018-06-17 08:00] VITALS: BP 141/60
[2018-06-17 08:58] LABS: Basophils # (auto) 0.1 uL; Monocytes # (auto) 1.1 uL; White Blood Cell 12.3 10^3/uL (4.4-10.8)
[2018-06-17 09:02] LABS: Basophils % (auto) 0.9 % (0.0-2.0); Eosinophils # (auto) 0.5 uL; Eosinophils % (auto) 3.8 % (0.0-7.0); Hematocrit 31.2 % (36.0-46.0); Hemoglobin 10.6 g/dL (12.2-16.2); Lymphocytes % (auto) 16.2 % (10.0-50.0); Mean Corpuscular Hemoglobin 29.4 pg (28.0-32.0); Mean Corpuscular Hgb Conc. 33.9 g/dL (32.0-36.0); Mean Corpuscular Volume 86.9 fL (80.0-100.0); Monocytes % (auto) 8.9 % (0.0-12.0); Neutrophils # (auto) 8.6 uL; Neutrophils % (auto) 70.2 % (37.0-80.0); Red Blood Cells 3.59 10^6/uL (4.0-5.20); Red Cell Distribution Width 13.9 % (11.8-14.3)
[2018-06-17] MEDS ORDERED: HYD500C PO (09:06)
[2018-06-17] MEDS ORDERED: INVANZ IV (09:06)
[2018-06-17] MEDS ORDERED: CLOP75TA41 PO (09:06)
[2018-06-17] MEDS ORDERED: FURO20TA PO (09:06)
[2018-06-17] MEDS ORDERED: ATOR20TA50 PO (09:06)
[2018-06-17] MEDS ORDERED: ASPI81CH43 PO (09:06)
[2018-06-17] MEDS ORDERED: POTA-165 PO (09:06)
[2018-06-17 09:17] LABS: BUN/Creatinine Ratio 28.3; Calcium 8.7 mg/dL (8.5-10.1); Magnesium 2.5 mg/dL (1.6-2.6); Potassium 4.4 mmol/L (3.5-5.1)
[2018-06-17 09:19] LABS: Platelet Count (auto) 742 10^3/uL (140-450)
[2018-06-17] MEDS: LOSARTAN POTASSIUM 50 MG TAB PO SCH (10:00)
[2018-06-17] MEDS: ENOXAPARIN SOD 80 MG/0.8ML SYRINGE SC SCH (10:00)
[2018-06-17] MEDS: METOPROLOL SUCCINATE XL 50 MG TAB PO SCH (10:00)
[2018-06-17] MEDS: ALLOPURINOL 100 MG TAB PO SCH (10:09)
[2018-06-17] MEDS: POTASSIUM CHL 20 Meq TABLET PO SCH (10:09)
[2018-06-17] MEDS: ASPirin 81 mg TAB PO SCH (10:09)
[2018-06-17] MEDS: ERTAPENEM SOD INJ 1 GM in SODIUM CHL 0.9% 50 ML IV SCH (10:09)
[2018-06-17] MEDS: HYDROXYUREA 500 MG CAP PO SCH (10:11)
[2018-06-17] MEDS: CLOPIDOGREL BISULFATE 75 MG TAB PO SCH (10:11)
[2018-06-17] MEDS: FAMOTIDINE 20 MG TAB PO SCH (10:11)
[2018-06-17] MEDS: FUROSEMIDE 20 MG/2 ML VIAL IV SCH (10:11)
[2018-06-17 12:05] VITALS: BP 135/65
[2018-06-17] MEDS ORDERED: LIDOCAINE 1% (LOCAL ANESTH.) PF 5ml SDV ID ONE (12:15)
[2018-06-17] MEDS: SODIUM FERR GLUC 62.5MG/5ML 125 MG in SODIUM CHL 0.9% 100 ML IV SCH (15:14)
[2018-06-17 15:53] VITALS: BP 128/63
[2018-06-17] MEDS ORDERED: SODIUM CHLOR 0.9% PF (SALINE LOCK) 10ML VIAL/SYR IV SCH (22:00)
== END 2018-06-17 19:09 | disposition home health service (06) | DRG 246 ==
LOC: ER 17:52 → CATH 1 18:11 → ICU CENTRL 18:12 → DOU IN ICU 19:49
PROVIDERS: ADMIT Internal Medicine; ATTEND Hospitalist
PROC: B2111ZZ Fluoroscopy of Multiple Coronary Arteries using Low Osmolar Contrast (ICD-10-PCS; principal; 2018-06-12)
PROC: 4A023N7 Measurement of Cardiac Sampling and Pressure, Left Heart, Percutaneous Approach (ICD-10-PCS; 2018-06-12)
PROC: B2151ZZ Fluoroscopy of Left Heart using Low Osmolar Contrast (ICD-10-PCS; 2018-06-12)
PROC: 027035Z Dilation of Coronary Artery, One Artery with Two Drug-eluting Intraluminal Devices, Percutaneous Approach (ICD-10-PCS; 2018-06-15)
PROC: 4A023N7 Measurement of Cardiac Sampling and Pressure, Left Heart, Percutaneous Approach (ICD-10-PCS; 2018-06-15)
PROC: B2111ZZ Fluoroscopy of Multiple Coronary Arteries using Low Osmolar Contrast (ICD-10-PCS; 2018-06-15)
PROC: 02HV33Z Insertion of Infusion Device into Superior Vena Cava, Percutaneous Approach (ICD-10-PCS; 2018-06-17)
DX: T82.855A Stenosis of coronary artery stent, initial encounter (principal); I21.3 ST elevation (STEMI) myocardial infarction of unspecified site; I50.31 Acute diastolic (congestive) heart failure; N39.0 Urinary tract infection, site not specified; I13.0 Hypertensive heart and chronic kidney disease with heart failure and stage 1 through stage 4 chronic kidney disease, or unspecified chronic kidney disease; I16.1 Hypertensive emergency; Y83.8 Other surgical procedures as the cause of abnormal reaction of the patient, or of later complication, without mention of misadventure at the time of the procedure; I35.0 Nonrheumatic aortic (valve) stenosis; N18.3 Chronic kidney disease, stage 3 (moderate); E11.22 Type 2 diabetes mellitus with diabetic chronic kidney disease; D50.9 Iron deficiency anemia, unspecified; F41.9 Anxiety disorder, unspecified; E78.5 Hyperlipidemia, unspecified; B96.20 Unspecified Escherichia coli [E. coli] as the cause of diseases classified elsewhere; G47.00 Insomnia, unspecified; D72.829 Elevated white blood cell count, unspecified; M10.9 Gout, unspecified; R79.89 Other specified abnormal findings of blood chemistry; I25.10 Atherosclerotic heart disease of native coronary artery without angina pectoris; I25.2 Old myocardial infarction; Z88.8 Allergy status to other drugs, medicaments and biological substances; Y92.89 Other specified places as the place of occurrence of the external cause; Z80.9 Family history of malignant neoplasm, unspecified; Z82.49 Family history of ischemic heart disease and other diseases of the circulatory system; Z82.5 Family history of asthma and other chronic lower respiratory diseases; Z85.3 Personal history of malignant neoplasm of breast
CPT/HCPCS: 36415; 36600; 51702; 71045; 80048; 80053; 80061; 81001; 82550; 82728; 82805; 82962; 83036; 83540; 83550; 83735; 83880; 84443; 84484; 85014; 85018; 85025; 85610; 85652; 85730; 86850; 86900; 86901; 87040; 87081; 87086; 87088; 87186; 92928; 93005; 93458; 94761; 96374; 96375; 97163; 99152; A6257; C1874; J0696; J1335; J1815; J1956; J2001; J2250; J2405; Q9967

== ENCOUNTER 2018-06-19 12:38 | Inpatient (IN) | payer OTHER ==
[~2018-06-19] VITALS: Ht 147.3 cm; Wt 78.1 kg
[2018-06-19] VITALS (37 sets, daily range): BP systolic 23–165; BP diastolic 10–90
[~2018-06-19 12:38] MED LIST changes: +ASPI81CH43 PO; +ATOR20TA50 PO; +CLOP75TA41 PO; -EZET10TA38 PO; +FENO134C PO; +FURO20TA PO; +HYD500C PO; -INDA1.252 PO; +INVANZ IV; +LACT10SO3 PO; -LEVO500T21 PO; +LORA1TAB12 PO; +POTA-180 PO; -TRAZ50TA2 PO
[2018-06-19] MEDS ORDERED: IODIXANOL 320MG/ML 100ML BTL IV ONE (13:05)
[2018-06-19] MEDS ORDERED: LIDOCAINE 2% (LOCAL ANESTH.) PF 5ml SDV ONE (13:05)
[2018-06-19] MEDS ORDERED: MORPHINE SULF INJ 2 MG/ML SYRINGE 1ML ONE ×2 (13:06→14:10)
[2018-06-19] MEDS ORDERED: HEPARIN SODIUM (PORCINE) 5000 UNITS/ML 1ML VIAL ONE ×2 (13:07→13:08)
[2018-06-19] MEDS ORDERED: fentaNYL CITRATE 100 MCG/2 ML VL ONE (13:07)
[2018-06-19] MEDS ORDERED: MIDAZOLAM HCL 1MG/1ML-2 ML VIAL ONE ×4 (13:07→14:44)
[2018-06-19] MEDS ORDERED: ANGIOMAX 250 MG VIAL IV ONE (13:07)
[2018-06-19] MEDS ORDERED: EPTIFIBATIDE DRIP(0.75MG/ML) 0 ML IV ONE (13:08)
[2018-06-19] MEDS ORDERED: ONDANSETRON HCL 4 MG/2 ML VIAL ONE ×2 (13:08→14:14)
[2018-06-19] MEDS ORDERED: ATROPINE SULF 1 MG/10ml SYR ONE (13:08)
[2018-06-19] MEDS ORDERED: EPTIFIBATIDE INJ (2MG/ML) 10ML VIAL IV ONE (13:08)
[2018-06-19] MEDS ORDERED: SODIUM CHL 0.9% 50 ML ONE (13:08)
[2018-06-19] MEDS ORDERED: EPINEPHrine HCL 1 MG/10 ML SYRG ONE (13:09)
[2018-06-19] MEDS ORDERED: MORPHINE SULF INJ 2 MG/ML SYRINGE 1ML IV ONE (13:15)
[2018-06-19] MEDS ORDERED: ONDANSETRON HCL 4 MG/2 ML VIAL IV ONE (13:15)
[2018-06-19] MEDS ORDERED: HEPARIN SODIUM (PORCINE) 5000 UNITS/ML 1ML VIAL IV ONE (13:15)
[2018-06-19 13:34] LABS: Basophils # (auto) 0.2 uL; Eosinophils # (auto) 1.2 uL
[2018-06-19 13:37] LABS: Eosinophils % (auto) 6.4 % (0.0-7.0); Hematocrit 32.6 % (36.0-46.0); Hemoglobin 11.1 g/dL (12.2-16.2); Lymphocytes % (auto) 28.1 % (10.0-50.0); Mean Corpuscular Hemoglobin 29.9 pg (28.0-32.0); Monocytes # (auto) 2.2 uL; Monocytes % (auto) 12.2 % (0.0-12.0); Neutrophils # (auto) 9.4 uL; Neutrophils % (auto) 52.3 % (37.0-80.0); Red Blood Cells 3.71 10^6/uL (4.0-5.20); Red Cell Distribution Width 14.4 % (11.8-14.3); White Blood Cell 17.9 10^3/uL (4.4-10.8)
[2018-06-19] MEDS ORDERED: NOREPINEPHRINE 8 MG/250ML KIT 250 ML IV ONE (13:52)
[2018-06-19 13:59] LABS: Platelet Count (auto) 1024 10^3/uL (140-450)
[2018-06-19 14:00] LABS: Partial Thromboplastin Time 26.6 sec (23.78-33.04); Prothrombin Time 10.7 sec (9.27-12.13)
[2018-06-19] MEDS ORDERED: ADENOSINE 6 MG/2 ML INJ IV ONE (14:03)
[2018-06-19 14:04] LABS: Albumin 3.1 g/dL (3.4-5.0); BUN/Creatinine Ratio 20.8; Calcium 8.7 mg/dL (8.5-10.1); Magnesium 2.2 mg/dL (1.6-2.6); Potassium 3.9 mmol/L (3.5-5.1)
[2018-06-19 14:22] LABS: Bilirubin, Total 0.6 mg/dL (0.2-1.0); Total Protein 7.4 g/dL (6.4-8.2)
[2018-06-19] MEDS ORDERED: MIDAZOLAM DRIP 50 mg/50mL 50 ML IV ONE (15:14)
[2018-06-19] MEDS ORDERED: ASPirin 81 mg TAB PO ONE (15:45)
[2018-06-19] MEDS ORDERED: CLOPIDOGREL BISULFATE 75 MG TAB PO ONE (15:45)
[2018-06-19] MEDS: MIDAZOLAM DRIP 50 mg/50mL 50 ML IV SCH (15:50)
[2018-06-19 16:46] LABS: Urine Bacteria FEW /hpf (None Seen); Urine Blood Negative /uL (Negative); Urine Specific Gravity 1.038 (1.001-1.035); Urine WBC 5 /hpf (0 - 5)
[2018-06-19] MEDS: fentaNYL Drip 2500mCg/250mlNS 250 ML IV SCH (17:30)
[2018-06-19] MEDS: NOREPINEPHRINE 8 MG/250ML KIT 250 ML IV SCH ×2 (18:03→22:46)
[2018-06-19] MEDS ORDERED: DEXTROSE (50%) 50ML SYRG IV PRN (18:30)
[2018-06-19] MEDS: CEFTRIAXONE SODIUM 1 GM in D5W 5% 50 ML IV SCH (19:51)
[2018-06-19] MEDS ORDERED: FAMOTIDINE (10MG/ML) 2ML VL IV ONE (20:00)
[2018-06-19] MEDS ORDERED: DOBUTamine 1000MCG/ML 250 ML IV ONE (21:04)
[2018-06-19] MEDS ORDERED: FUROSEMIDE 20 MG/2 ML VIAL ONE (21:11)
[2018-06-19] MEDS: DOBUTamine 1000MCG/ML 250 ML IV SCH (21:15)
[2018-06-19] MEDS ORDERED: FUROSEMIDE 20 MG/2 ML VIAL IV SCH (22:00)
[2018-06-19] MEDS: ACCU-CHEK COMFORT CURVE STRIP VI SCH (22:40)
[2018-06-19] MEDS: InsuLIN REG 1unit/0.01ml Soln (100units/ml) SC SCH (22:45)
[2018-06-20] VITALS (102 sets, daily range): BP systolic 0–120; BP diastolic 0–89
[2018-06-20] MEDS ORDERED: D5W/SOD CHL 0.45% 1,000 ML IV SCH ×3 (00:30→20:15)
[2018-06-20] MEDS: MIDAZOLAM DRIP 50 mg/50mL 50 ML IV SCH (03:41)
[2018-06-20] MEDS: FUROSEMIDE 20 MG/2 ML VIAL IV SCH ×4 (03:42→17:42)
[2018-06-20 04:29] LABS: Basophils # (auto) 0.1 uL; Eosinophils # (auto) 0.1 uL; Mean Corpuscular Hemoglobin 29.1 pg (28.0-32.0); Monocytes # (auto) 2.1 uL
[2018-06-20 04:31] LABS: Basophils % (auto) 0.5 % (0.0-2.0); Eosinophils % (auto) 0.5 % (0.0-7.0); Hematocrit 28.5 % (36.0-46.0); Hemoglobin 9.4 g/dL (12.2-16.2); Lymphocytes # (auto) 1.9 uL; Mean Corpuscular Volume 88.3 fL (80.0-100.0); Neutrophils # (auto) 16.5 uL; Platelet Count (auto) 613 10^3/uL (140-450); Red Blood Cells 3.22 10^6/uL (4.0-5.20); Red Cell Distribution Width 14.1 % (11.8-14.3); White Blood Cell 20.6 10^3/uL (4.4-10.8)
[2018-06-20 04:48] LABS: Anion Gap 12 (5-15); BUN/Creatinine Ratio 20.8; Blood Urea Nitrogen 25 mg/dL (7-18); Carbon Dioxide 23 mmol/L (21-32); Chloride 102 mmol/L (98-107); GFR African American 55 mL/min; GFR Non-African American 45 mL/min; Glucose 216 mg/dL (74-106); Potassium 3.5 mmol/L (3.5-5.1); Sodium 137 mmol/L (136-145)
[2018-06-20 06:40] LABS: Magnesium 1.9 mg/dL (1.6-2.6); Phosphorus 3.8 mg/dL (2.5-4.90); Pre Albumin 18.6 mg/dL (20.0-40.0)
[2018-06-20] MEDS: ACCU-CHEK COMFORT CURVE STRIP VI SCH ×4 (06:45→21:52)
[2018-06-20] MEDS: InsuLIN REG 1unit/0.01ml Soln (100units/ml) SC SCH ×4 (06:45→22:04)
[2018-06-20] MEDS ORDERED: PPN PER PHARMACY 0 ML IV SCH (08:00)
[2018-06-20 08:57] LABS: Alanine Aminotransferase 94 U/L (13-56); Albumin 2.8 g/dL (3.4-5.0); Alkaline Phosphatase 42 U/L (45-117); Aspartate Aminotransferase 735 U/L (15-37); Bilirubin, Direct < 0.1 mg/dL (0-0.2); Bilirubin, Total 0.4 mg/dL (0.2-1.0); Total Protein 6.3 g/dL (6.4-8.2)
[2018-06-20] MEDS ORDERED: CLOPIDOGREL BISULFATE 75 MG TAB PO SCH (10:00)
[2018-06-20] MEDS: DOBUTamine 1000MCG/ML 250 ML IV SCH (10:13)
[2018-06-20] MEDS: CEFTRIAXONE SODIUM 1 GM in D5W 5% 50 ML IV SCH (10:41)
[2018-06-20] MEDS: ASPirin 81 mg TAB PO SCH (10:41)
[2018-06-20] MEDS ORDERED: POTASSIUM CHL 20MEQ/100ML 100 ML IV ONE (10:45)
[2018-06-20] MEDS ORDERED: INVANZ IV (11:23)
[2018-06-20] MEDS ORDERED: ERTAPENEM SOD INJ 1 GM in SODIUM CHL 0.9% 50 ML IV ONE (13:15)
[2018-06-20] MEDS ORDERED: TICAGRELOR 90 MG TAB PO ONE (13:15)
[2018-06-20] MEDS: D5W/SOD CHL 0.45% 1,000 ML IV SCH (14:18)
[2018-06-20] MEDS: fentaNYL Drip 2500mCg/250mlNS 250 ML IV SCH (16:10)
[2018-06-20] MEDS ORDERED: PPN PER PHARMACY IV NR ×8 (20:00)
[2018-06-20] MEDS: NOREPINEPHRINE 8 MG/250ML KIT 250 ML IV SCH (21:49)
[2018-06-20] MEDS: CLINDAMYCIN 600MG IV 50 ML IV SCH (21:51)
[2018-06-20] MEDS: TICAGRELOR 90 MG TAB PO SCH (21:52)
[2018-06-21] VITALS (103 sets, daily range): BP systolic 28–124; BP diastolic 15–97
[2018-06-21] MEDS: FUROSEMIDE 20 MG/2 ML VIAL IV SCH ×5 (00:09→23:30)
[2018-06-21 05:27] LABS: Albumin 2.2 g/dL (3.4-5.0); BUN/Creatinine Ratio 14.4; Bilirubin, Total 0.4 mg/dL (0.2-1.0); Calcium 6.9 mg/dL (8.5-10.1); Magnesium 2.1 mg/dL (1.6-2.6); Phosphorus 1.8 mg/dL (2.5-4.90); Potassium 3.2 mmol/L (3.5-5.1); Total Protein 5.7 g/dL (6.4-8.2)
[2018-06-21] MEDS: ACCU-CHEK COMFORT CURVE STRIP VI SCH ×4 (06:10→22:24)
[2018-06-21] MEDS: CLINDAMYCIN 600MG IV 50 ML IV SCH ×3 (06:11→22:29)
[2018-06-21] MEDS: InsuLIN REG 1unit/0.01ml Soln (100units/ml) SC SCH ×4 (06:11→22:29)
[2018-06-21 07:40] LABS: Basophils # (auto) 0.1 uL; Basophils % (auto) 0.4 % (0.0-2.0); Eosinophils # (auto) 0.4 uL; Eosinophils % (auto) 2.1 % (0.0-7.0); Hemoglobin 8.5 g/dL (12.2-16.2); Lymphocytes # (auto) 1.7 uL; Lymphocytes % (auto) 8.8 % (10.0-50.0); Mean Corpuscular Hemoglobin 30.4 pg (28.0-32.0); Mean Corpuscular Hgb Conc. 33.9 g/dL (32.0-36.0); Mean Corpuscular Volume 89.5 fL (80.0-100.0); Monocytes # (auto) 1.8 uL; Monocytes % (auto) 9.5 % (0.0-12.0); Neutrophils # (auto) 15.1 uL; Neutrophils % (auto) 79.2 % (37.0-80.0); Platelet Count (auto) 430 10^3/uL (140-450); Red Cell Distribution Width 15.1 % (11.8-14.3); White Blood Cell 19.1 10^3/uL (4.4-10.8)
[2018-06-21] MEDS ORDERED: POTASSIUM PHOSPHATE 44 MEQ in D5W 5% 250 ML IV ONE (09:00)
[2018-06-21] MEDS: D5W/SOD CHL 0.45% 1,000 ML IV SCH (09:15)
[2018-06-21] MEDS: TICAGRELOR 90 MG TAB PO SCH ×2 (10:21→22:28)
[2018-06-21] MEDS: ASPirin 81 mg TAB PO SCH (10:22)
[2018-06-21] MEDS: ERTAPENEM SOD INJ 1 GM in SODIUM CHL 0.9% 50 ML IV SCH (10:50)
[2018-06-21] MEDS: NOREPINEPHRINE 8 MG/250ML KIT 250 ML IV SCH ×2 (10:51→20:00)
[2018-06-21] MEDS: DOBUTamine 1000MCG/ML 250 ML IV SCH ×2 (11:23→15:07)
[2018-06-21] MEDS ORDERED: POTASSIUM EFFERVESENT TAB 25 MEQ GT ONE (13:00)
[2018-06-21] MEDS: ACETAMINOPHEN 650 mg PER 20 mL UD PO PRN (13:47)
[2018-06-21] MEDS: MIDAZOLAM DRIP 50 mg/50mL 50 ML IV SCH (16:33)
[2018-06-21] MEDS: fentaNYL Drip 2500mCg/250mlNS 250 ML IV SCH (16:33)
[2018-06-21] MEDS: SODIUM CHLORIDE 0.9% 1,000 ML IV SCH (17:02)
[2018-06-21] MEDS ORDERED: SODIUM CHLORIDE IV NR ×19 (20:00)
[2018-06-21] MEDS ORDERED: FAT EMULSION IV NR ×19 (20:00)
[2018-06-21] MEDS ORDERED: [UNRECOGNIZED DRUG - OTHER] IV NR ×19 (20:00)
[2018-06-21] MEDS ORDERED: POTASSIUM CHLORIDE IV NR ×19 (20:00)
[2018-06-21] MEDS ORDERED: FERROUS SULFATE 300 MG/5 ML ORAL LIQ GT SCH (22:00)
[2018-06-21] MEDS: ATORVASTATIN 20 MG TAB GT SCH (22:28)
[2018-06-21] MEDS: DOCUSATE ORAL LIQUID 100 MG/10 ML UD GT SCH (22:28)
[2018-06-22] VITALS (101 sets, daily range): BP systolic 42–133; BP diastolic 18–82
[2018-06-22] MEDS: DOBUTamine 1000MCG/ML 250 ML IV SCH ×2 (00:13→08:30)
[2018-06-22 04:18] LABS: Basophils # (auto) 0.1 uL; Eosinophils # (auto) 0.6 uL; Hemoglobin 8.3 g/dL (12.2-16.2)
[2018-06-22 04:21] LABS: Basophils % (auto) 0.4 % (0.0-2.0); Eosinophils % (auto) 3.1 % (0.0-7.0); Hematocrit 24.1 % (36.0-46.0); Lymphocytes # (auto) 1.9 uL; Lymphocytes % (auto) 10.1 % (10.0-50.0); Mean Corpuscular Hemoglobin 30.3 pg (28.0-32.0); Mean Corpuscular Hgb Conc. 34.2 g/dL (32.0-36.0); Mean Corpuscular Volume 88.4 fL (80.0-100.0); Monocytes % (auto) 10.8 % (0.0-12.0); Neutrophils % (auto) 75.6 % (37.0-80.0); Platelet Count (auto) 430 10^3/uL (140-450); Red Blood Cells 2.73 10^6/uL (4.0-5.20); Red Cell Distribution Width 14.8 % (11.8-14.3); White Blood Cell 18.6 10^3/uL (4.4-10.8)
[2018-06-22 04:28] LABS: INR 1.05 (0.9-1.15); Partial Thromboplastin Time 28.9 sec (23.78-33.04); Prothrombin Time 11.2 sec (9.27-12.13)
[2018-06-22 04:59] LABS: Albumin 2.2 g/dL (3.4-5.0); BUN/Creatinine Ratio 20.4; Bilirubin, Direct 0.1 mg/dL (0-0.2); Bilirubin, Total 0.4 mg/dL (0.2-1.0); Calcium 7.2 mg/dL (8.5-10.1); Magnesium 1.8 mg/dL (1.6-2.6); Phosphorus 3.3 mg/dL (2.5-4.90); Potassium 3.8 mmol/L (3.5-5.1); Total Protein 5.8 g/dL (6.4-8.2)
[2018-06-22] MEDS: CLINDAMYCIN 600MG IV 50 ML IV SCH ×3 (06:35→22:16)
[2018-06-22] MEDS: FUROSEMIDE 20 MG/2 ML VIAL IV SCH ×3 (06:35→17:44)
[2018-06-22] MEDS: ACCU-CHEK COMFORT CURVE STRIP VI SCH ×4 (06:35→22:16)
[2018-06-22] MEDS: InsuLIN REG 1unit/0.01ml Soln (100units/ml) SC SCH ×4 (06:36→22:00)
[2018-06-22] MEDS: NOREPINEPHRINE 8 MG/250ML KIT 250 ML IV SCH ×2 (06:42→19:48)
[2018-06-22] MEDS: ASPirin 81 mg TAB PO SCH (10:05)
[2018-06-22] MEDS: ERTAPENEM SOD INJ 1 GM in SODIUM CHL 0.9% 50 ML IV SCH (10:06)
[2018-06-22] MEDS: ALLOPURINOL 100 MG TAB GT SCH (10:06)
[2018-06-22] MEDS: DOCUSATE ORAL LIQUID 100 MG/10 ML UD GT SCH ×2 (10:06→22:00)
[2018-06-22] MEDS: TICAGRELOR 90 MG TAB PO SCH ×2 (10:06→22:11)
[2018-06-22] MEDS ORDERED: SODIUM FERR GLUC 62.5MG/5ML 125 MG in SODIUM CHL 0.9% 100 ML IV SCH (12:00)
[2018-06-22] MEDS: MIDAZOLAM DRIP 50 mg/50mL 50 ML IV SCH (15:50)
[2018-06-22] MEDS: fentaNYL Drip 2500mCg/250mlNS 250 ML IV SCH (15:50)
[2018-06-22] MEDS: SODIUM CHLORIDE 0.9% 1,000 ML IV SCH (16:30)
[2018-06-22] MEDS ORDERED: FAT EMULSION IV NR ×10 (20:00)
[2018-06-22] MEDS ORDERED: SODIUM CHLORIDE IV NR ×10 (20:00)
[2018-06-22] MEDS ORDERED: POTASSIUM CHLORIDE IV NR ×10 (20:00)
[2018-06-22] MEDS ORDERED: [UNRECOGNIZED DRUG - OTHER] IV NR ×10 (20:00)
[2018-06-22] MEDS: ATORVASTATIN 20 MG TAB GT SCH (22:12)
[2018-06-23] VITALS (98 sets, daily range): BP systolic 57–138; BP diastolic 20–95
[2018-06-23] MEDS: FUROSEMIDE 20 MG/2 ML VIAL IV SCH ×3 (00:10→17:52)
[2018-06-23] MEDS: SODIUM CHLORIDE 0.9% 1,000 ML IV SCH (00:31)
[2018-06-23 06:38] LABS: Eosinophils # (auto) 0.3 uL; Lymphocytes # (auto) 0.9 uL; Monocytes # (auto) 1.6 uL
[2018-06-23 06:39] LABS: Basophils # (auto) 0.1 uL; Basophils % (auto) 0.5 % (0.0-2.0); Eosinophils % (auto) 1.8 % (0.0-7.0); Hematocrit 23.8 % (36.0-46.0); Lymphocytes % (auto) 5.3 % (10.0-50.0); Mean Corpuscular Hemoglobin 30.2 pg (28.0-32.0); Mean Corpuscular Hgb Conc. 33.8 g/dL (32.0-36.0); Mean Corpuscular Volume 89.4 fL (80.0-100.0); Monocytes % (auto) 8.8 % (0.0-12.0); Neutrophils % (auto) 83.6 % (37.0-80.0); Platelet Count (auto) 414 10^3/uL (140-450); Red Blood Cells 2.66 10^6/uL (4.0-5.20); Red Cell Distribution Width 15.3 % (11.8-14.3); White Blood Cell 17.9 10^3/uL (4.4-10.8)
[2018-06-23 06:59] LABS: Albumin 2.1 g/dL (3.4-5.0); BUN/Creatinine Ratio 32.2; Bilirubin, Total 0.4 mg/dL (0.2-1.0); Calcium 7.4 mg/dL (8.5-10.1); Magnesium 2.6 mg/dL (1.6-2.6); Phosphorus 4.1 mg/dL (2.5-4.90); Total Protein 5.8 g/dL (6.4-8.2)
[2018-06-23] MEDS: InsuLIN REG 1unit/0.01ml Soln (100units/ml) SC SCH ×4 (06:59→22:15)
[2018-06-23] MEDS: ACCU-CHEK COMFORT CURVE STRIP VI SCH ×4 (06:59→22:09)
[2018-06-23] MEDS: DOBUTamine 1000MCG/ML 250 ML IV SCH ×2 (06:59→14:43)
[2018-06-23] MEDS: CLINDAMYCIN 600MG IV 50 ML IV SCH ×2 (06:59→14:14)
[2018-06-23] MEDS: ALLOPURINOL 100 MG TAB GT SCH (09:21)
[2018-06-23] MEDS: TICAGRELOR 90 MG TAB PO SCH ×2 (09:21→22:15)
[2018-06-23] MEDS: ASPirin 81 mg TAB PO SCH (09:21)
[2018-06-23] MEDS: NOREPINEPHRINE 8 MG/250ML KIT 250 ML IV SCH (09:21)
[2018-06-23] MEDS: DOCUSATE ORAL LIQUID 100 MG/10 ML UD GT SCH ×2 (09:23→22:00)
[2018-06-23] MEDS: ERTAPENEM SOD INJ 1 GM in SODIUM CHL 0.9% 50 ML IV SCH (09:23)
[2018-06-23] MEDS: SODIUM FERR GLUC 62.5MG/5ML 125 MG in SODIUM CHL 0.9% 100 ML IV SCH (12:19)
[2018-06-23] MEDS ORDERED: VANCOMYCIN PER PHARMACY 0 MG IV SCH (15:15)
[2018-06-23] MEDS: fentaNYL Drip 2500mCg/250mlNS 250 ML IV SCH (15:50)
[2018-06-23] MEDS: MIDAZOLAM DRIP 50 mg/50mL 50 ML IV SCH (15:50)
[2018-06-23] MEDS ORDERED: ONDANSETRON HCL 4 MG/2 ML VIAL ONE (16:19)
[2018-06-23 16:29] LABS: Hemoglobin 8.7 g/dL (12.2-16.2)
[2018-06-23 16:31] LABS: Hematocrit 25.9 % (36.0-46.0)
[2018-06-23] MEDS: VANCOMYCIN 750 MG in D5W 5% 250 ML IV SCH (17:16)
[2018-06-23] MEDS ORDERED: DIGOXIN (250MCG/ML) 2 ML AMPULE IV ONE (17:45)
[2018-06-23] MEDS ORDERED: PPN PER PHARMACY IV NR ×11 (20:00)
[2018-06-23] MEDS: ATORVASTATIN 20 MG TAB GT SCH (22:15)
[2018-06-23] MEDS: ALBUTEROL SULF 2.5 MG/0.5ML(0.5%) NEB SOLN NEB PRN (22:16)
[2018-06-23] MEDS: ACETYLCYSTEINE 10 %(100MG/ML) SOL 4ML NEB SCH (22:16)
[2018-06-24] VITALS (62 sets, daily range): BP systolic 67–132; BP diastolic 21–64
[2018-06-24] MEDS ORDERED: FUROSEMIDE 20 MG/2 ML VIAL IV ONE (00:15)
[2018-06-24] MEDS ORDERED: FUROSEMIDE 20 MG/2 ML VIAL ONE (00:17)
[2018-06-24] MEDS: NOREPINEPHRINE 8 MG/250ML KIT 250 ML IV SCH (01:39)
[2018-06-24] MEDS: DOBUTamine 1000MCG/ML 250 ML IV SCH ×2 (03:32→16:48)
[2018-06-24 05:08] LABS: Eosinophils # (auto) 0 uL; Platelet Count (auto) 460 10^3/uL (140-450)
[2018-06-24 05:10] LABS: Basophils # (auto) 0 uL; Basophils % (auto) 0.1 % (0.0-2.0); Hemoglobin 8.3 g/dL (12.2-16.2); Lymphocytes # (auto) 0.8 uL; Lymphocytes % (auto) 3.1 % (10.0-50.0); Mean Corpuscular Hemoglobin 29.6 pg (28.0-32.0); Mean Corpuscular Hgb Conc. 33.1 g/dL (32.0-36.0); Mean Corpuscular Volume 89.5 fL (80.0-100.0); Monocytes # (auto) 1.9 uL; Monocytes % (auto) 7.2 % (0.0-12.0); Neutrophils # (auto) 23.5 uL; Neutrophils % (auto) 89.6 % (37.0-80.0); Red Cell Distribution Width 15.4 % (11.8-14.3); White Blood Cell 26.2 10^3/uL (4.4-10.8)
[2018-06-24 05:33] LABS: Albumin 2.1 g/dL (3.4-5.0); BUN/Creatinine Ratio 42.9; Bilirubin, Total 0.5 mg/dL (0.2-1.0); Calcium 7.6 mg/dL (8.5-10.1); Magnesium 2.7 mg/dL (1.6-2.6); Phosphorus 4.1 mg/dL (2.5-4.90); Potassium 4.2 mmol/L (3.5-5.1); Pre Albumin 7.5 mg/dL (20.0-40.0); Total Protein 6.1 g/dL (6.4-8.2)
[2018-06-24] MEDS: InsuLIN REG 1unit/0.01ml Soln (100units/ml) SC SCH ×2 (06:47→19:00)
[2018-06-24] MEDS: FUROSEMIDE 20 MG/2 ML VIAL IV SCH ×3 (06:47→21:00)
[2018-06-24] MEDS: ACCU-CHEK COMFORT CURVE STRIP VI SCH ×2 (06:47→19:00)
[2018-06-24] MEDS: ACETYLCYSTEINE 10 %(100MG/ML) SOL 4ML NEB SCH ×3 (07:01→22:22)
[2018-06-24] MEDS: ALBUTEROL SULF 2.5 MG/0.5ML(0.5%) NEB SOLN NEB PRN ×3 (07:02→22:22)
[2018-06-24] MEDS: SODIUM CHLORIDE 0.9% 1,000 ML IV SCH (07:45)
[2018-06-24] MEDS ORDERED: MEROPENEM 1gm/20ml IVPUSH 20 ML IV SCH (09:00)
[2018-06-24] MEDS: ASPirin 81 mg TAB PO SCH (10:00)
[2018-06-24] MEDS: ALPRAZolam 0.5 MG TAB PO PRN ×2 (10:10→23:10)
[2018-06-24] MEDS ORDERED: DEXTROSE (50%) 50ML SYRG IV SCH (13:12)
[2018-06-24] MEDS ORDERED: InsuLIN REG 1unit/0.01ml Soln (100units/ml) SC SCH (13:30)
[2018-06-24] MEDS ORDERED: ACCU-CHEK COMFORT CURVE STRIP VI SCH (13:30)
[2018-06-24] MEDS: MEROPENEM 1gm/20ml IVPUSH 20 ML IV SCH ×2 (13:45→21:00)
[2018-06-24] MEDS: DOCUSATE ORAL LIQUID 100 MG/10 ML UD GT SCH ×2 (13:45→22:00)
[2018-06-24] MEDS: ALLOPURINOL 100 MG TAB GT SCH (13:46)
[2018-06-24] MEDS: TICAGRELOR 90 MG TAB PO SCH ×2 (14:00→22:00)
[2018-06-24] MEDS: fentaNYL Drip 2500mCg/250mlNS 250 ML IV SCH (14:03)
[2018-06-24] MEDS: MIDAZOLAM DRIP 50 mg/50mL 50 ML IV SCH (14:04)
[2018-06-24] MEDS: SODIUM FERR GLUC 62.5MG/5ML 125 MG in SODIUM CHL 0.9% 100 ML IV SCH (16:00)
[2018-06-24] MEDS: VANCOMYCIN 750 MG in D5W 5% 250 ML IV SCH (17:00)
[2018-06-24] MEDS ORDERED: PPN PER PHARMACY IV NR ×10 (20:00)
[2018-06-24] MEDS: ATORVASTATIN 20 MG TAB GT SCH (22:00)
[2018-06-25] VITALS (86 sets, daily range): BP systolic 61–130; BP diastolic 22–80
[2018-06-25] MEDS: FUROSEMIDE 20 MG/2 ML VIAL IV SCH ×4 (02:30→17:16)
[2018-06-25] MEDS: InsuLIN REG 1unit/0.01ml Soln (100units/ml) SC SCH ×4 (02:30→17:26)
[2018-06-25] MEDS: ACCU-CHEK COMFORT CURVE STRIP VI SCH ×4 (02:30→17:18)
[2018-06-25] MEDS: DOBUTamine 1000MCG/ML 250 ML IV SCH ×2 (03:20→17:16)
[2018-06-25 04:27] LABS: Albumin 2.1 g/dL (3.4-5.0); BUN/Creatinine Ratio 46.2; Bilirubin, Total 0.4 mg/dL (0.2-1.0); Calcium 7.9 mg/dL (8.5-10.1); Magnesium 2.3 mg/dL (1.6-2.6); Phosphorus 3.9 mg/dL (2.5-4.90); Potassium 3.8 mmol/L (3.5-5.1)
[2018-06-25] MEDS: ALBUTEROL SULF 2.5 MG/0.5ML(0.5%) NEB SOLN NEB PRN ×4 (06:47→22:25)
[2018-06-25] MEDS: ACETYLCYSTEINE 10 %(100MG/ML) SOL 4ML NEB SCH ×3 (06:47→22:25)
[2018-06-25] MEDS: ALLOPURINOL 100 MG TAB GT SCH (09:50)
[2018-06-25] MEDS: TICAGRELOR 90 MG TAB PO SCH ×2 (09:50→22:57)
[2018-06-25] MEDS: ASPirin 81 mg TAB PO SCH (09:50)
[2018-06-25] MEDS: MEROPENEM 1gm/20ml IVPUSH 20 ML IV SCH ×2 (09:51→21:00)
[2018-06-25] MEDS: DOCUSATE ORAL LIQUID 100 MG/10 ML UD GT SCH ×2 (09:51→22:57)
[2018-06-25] MEDS ORDERED: TPN PER PHARMACY 0 ML IV SCH (12:30)
[2018-06-25] MEDS: ACETAMINOPHEN 650 mg PER 20 mL UD PO PRN (15:25)
[2018-06-25] MEDS: ONDANSETRON HCL 4 MG/2 ML VIAL IV PRN (15:25)
[2018-06-25] MEDS: MIDAZOLAM DRIP 50 mg/50mL 50 ML IV SCH (15:43)
[2018-06-25] MEDS: fentaNYL Drip 2500mCg/250mlNS 250 ML IV SCH (15:43)
[2018-06-25] MEDS: SODIUM CHLORIDE 0.9% 1,000 ML IV SCH (16:30)
[2018-06-25] MEDS: VANCOMYCIN 750 MG in D5W 5% 250 ML IV SCH (17:09)
[2018-06-25] MEDS: NOREPINEPHRINE 8 MG/250ML KIT 250 ML IV SCH (18:51)
[2018-06-25] MEDS ORDERED: TPN PER PHARMACY IV NR ×11 (20:00)
[2018-06-25] MEDS: ATORVASTATIN 20 MG TAB GT SCH (22:58)
[2018-06-26] VITALS (81 sets, daily range): BP systolic 59–127; BP diastolic 24–63
[2018-06-26] MEDS: ACCU-CHEK COMFORT CURVE STRIP VI SCH ×5 (00:24→23:25)
[2018-06-26] MEDS: InsuLIN REG 1unit/0.01ml Soln (100units/ml) SC SCH ×5 (00:24→23:25)
[2018-06-26] MEDS: ONDANSETRON HCL 4 MG/2 ML VIAL IV PRN (00:35)
[2018-06-26] MEDS: LORazepam 2MG/ML-1ML VIAL IV PRN ×2 (01:00→21:24)
[2018-06-26 04:02] LABS: Hematocrit 22.8 % (36.0-46.0); Hemoglobin 7.8 g/dL (12.2-16.2); Mean Corpuscular Hemoglobin 31.1 pg (28.0-32.0); Mean Corpuscular Hgb Conc. 34.4 g/dL (32.0-36.0); Mean Corpuscular Volume 90.4 fL (80.0-100.0); Platelet Count (auto) 456 10^3/uL (140-450); Red Blood Cells 2.52 10^6/uL (4.0-5.20); Red Cell Distribution Width 16.1 % (11.8-14.3); White Blood Cell 26.2 10^3/uL (4.4-10.8)
[2018-06-26 04:19] LABS: Albumin 2.1 g/dL (3.4-5.0); BUN/Creatinine Ratio 55.2; Bilirubin, Total 0.4 mg/dL (0.2-1.0); Calcium 7.7 mg/dL (8.5-10.1); Magnesium 2.3 mg/dL (1.6-2.6); Phosphorus 3.6 mg/dL (2.5-4.90); Potassium 3.2 mmol/L (3.5-5.1)
[2018-06-26 04:25] LABS: Basophils % (manual) 0 (0.0-2.0); Blast Cells 0; Eosinophils % (manual) 0 (0-7); Metamyelocytes % 0; Myelocytes % 0; Promyelocytes % 0; Reactive Lymphocytes 0
[2018-06-26 05:30] LABS: Band Neutrophils % (manual) 3; Lymphocytes % (manual) 1 (10.0-50.0); Monocytes % (manual) 2 (0-12)
[2018-06-26] MEDS: FUROSEMIDE 20 MG/2 ML VIAL IV SCH ×2 (06:30)
[2018-06-26] MEDS ORDERED: POTASSIUM CHL 20MEQ/100ML 200 ML IV ONE (06:43)
[2018-06-26] MEDS: ACETYLCYSTEINE 10 %(100MG/ML) SOL 4ML NEB SCH ×2 (06:50→14:00)
[2018-06-26] MEDS: ALBUTEROL SULF 2.5 MG/0.5ML(0.5%) NEB SOLN NEB PRN (06:51)
[2018-06-26] MEDS: POTASSIUM CHL 20MEQ/100ML 100 ML IV SCH ×2 (08:39→08:45)
[2018-06-26] MEDS: NOREPINEPHRINE 8 MG/250ML KIT 250 ML IV SCH ×2 (09:08→17:49)
[2018-06-26] MEDS: MEROPENEM 1gm/20ml IVPUSH 20 ML IV SCH ×2 (09:16→20:46)
[2018-06-26] MEDS: DOCUSATE ORAL LIQUID 100 MG/10 ML UD GT SCH ×2 (09:35→21:39)
[2018-06-26] MEDS: ALLOPURINOL 100 MG TAB GT SCH (09:35)
[2018-06-26] MEDS: ASPirin 81 mg TAB PO SCH (09:35)
[2018-06-26] MEDS: TICAGRELOR 90 MG TAB PO SCH ×2 (09:36→21:39)
[2018-06-26] MEDS: DOBUTamine 1000MCG/ML 250 ML IV SCH ×2 (11:20→19:43)
[2018-06-26] MEDS: ACETAMINOPHEN 650 mg PER 20 mL UD PO PRN (11:28)
[2018-06-26] MEDS: MORPHINE SULF INJ 2 MG/ML SYRINGE 1ML IV PRN (12:12)
[2018-06-26] MEDS ORDERED: FUROSEMIDE INJECTION 250 MG in D5W 5% 225 ML IV SCH (12:45)
[2018-06-26] MEDS: BUMETANIDE (0.25MG/ML) 4 ML VIAL IV SCH ×2 (12:59→23:25)
[2018-06-26] MEDS: SODIUM CHLORIDE 0.9% 1,000 ML IV SCH (16:19)
[2018-06-26] MEDS: VANCOMYCIN 1GM/250ML 250 ML IV SCH (16:19)
[2018-06-26] MEDS ORDERED: SODIUM CHLORIDE 0.9% 1,000 ML IV SCH (19:45)
[2018-06-26] MEDS ORDERED: TPN PER PHARMACY IV NR ×11 (20:00)
[2018-06-26] MEDS: ATORVASTATIN 20 MG TAB GT SCH (21:39)
[2018-06-27] VITALS (70 sets, daily range): BP systolic 55–122; BP diastolic 20–61
[2018-06-27] MEDS: ALBUTEROL SULF 2.5 MG/0.5ML(0.5%) NEB SOLN NEB PRN (00:08)
[2018-06-27] MEDS: NOREPINEPHRINE 8 MG/250ML KIT 250 ML IV SCH ×3 (02:39→15:07)
[2018-06-27 04:42] LABS: Hemoglobin 7.8 g/dL (12.2-16.2); Mean Corpuscular Hgb Conc. 32.9 g/dL (32.0-36.0)
[2018-06-27 04:45] LABS: Hematocrit 23.8 % (36.0-46.0); Mean Corpuscular Hemoglobin 30.6 pg (28.0-32.0); Platelet Count (auto) 491 10^3/uL (140-450); Red Blood Cells 2.55 10^6/uL (4.0-5.20); Red Cell Distribution Width 16.2 % (11.8-14.3)
[2018-06-27 04:59] LABS: Albumin 2.2 g/dL (3.4-5.0); BUN/Creatinine Ratio 56.3; Calcium 8.3 mg/dL (8.5-10.1); Magnesium 2.3 mg/dL (1.6-2.6); Phosphorus 4.5 mg/dL (2.5-4.90); Potassium 4.2 mmol/L (3.5-5.1)
[2018-06-27 05:02] LABS: Bilirubin, Total 0.3 mg/dL (0.2-1.0)
[2018-06-27] MEDS ORDERED: DOBUTamine 1000MCG/ML 250 ML IV ONE (05:06)
[2018-06-27 05:12] LABS: Basophils % (manual) 0 (0.0-2.0); Blast Cells 0; Metamyelocytes % 0; Myelocytes % 0; Promyelocytes % 0; Reactive Lymphocytes 0
[2018-06-27] MEDS: ACCU-CHEK COMFORT CURVE STRIP VI SCH ×2 (05:21→11:45)
[2018-06-27] MEDS: InsuLIN REG 1unit/0.01ml Soln (100units/ml) SC SCH ×2 (05:21→11:45)
[2018-06-27] MEDS: BUMETANIDE (0.25MG/ML) 4 ML VIAL IV SCH ×2 (05:27→11:46)
[2018-06-27] MEDS: DOBUTamine 1000MCG/ML 250 ML IV SCH (06:29)
[2018-06-27 08:22] LABS: Band Neutrophils % (manual) 6; Eosinophils % (manual) 3 (0-7); Lymphocytes % (manual) 5 (10.0-50.0); Monocytes % (manual) 8 (0-12)
[2018-06-27] MEDS: ALLOPURINOL 100 MG TAB GT SCH (09:11)
[2018-06-27] MEDS: ASPirin 81 mg TAB PO SCH (09:12)
[2018-06-27] MEDS: TICAGRELOR 90 MG TAB PO SCH (09:12)
[2018-06-27] MEDS: MORPHINE SULF INJ 2 MG/ML SYRINGE 1ML IV PRN ×2 (09:12→15:47)
[2018-06-27] MEDS: MEROPENEM 1gm/20ml IVPUSH 20 ML IV SCH (09:13)
[2018-06-27] MEDS: DOCUSATE ORAL LIQUID 100 MG/10 ML UD GT SCH (09:13)
[2018-06-27] MEDS ORDERED: ATROPINE SULF 1 MG/10ml SYR ONE (10:39)
[2018-06-27] MEDS ORDERED: EPINEPHrine HCL 250 ML IV ONE (10:41)
[2018-06-27] MEDS ORDERED: EPINEPHrine HCL 250 ML IV SCH (10:57)
[2018-06-27] MEDS ORDERED: ACCU-CHEK COMFORT CURVE STRIP VI SCH (12:00)
[2018-06-27] MEDS ORDERED: DEXTROSE (50%) 50ML SYRG IV PRN (12:00)
[2018-06-27] MEDS ORDERED: InsuLIN REG 1unit/0.01ml Soln (100units/ml) SC SCH (12:00)
[2018-06-27] MEDS ORDERED: MORPHINE SULF INJ 2 MG/ML SYRINGE 1ML IV PRN (16:00)
[2018-06-27] MEDS ORDERED: LORazepam 2MG/ML-1ML VIAL IV PRN (16:00)
[2018-06-27] MEDS: VANCOMYCIN 1GM/250ML 250 ML IV SCH (16:29)
[2018-06-27] MEDS ORDERED: TPN PER PHARMACY IV NR ×9 (20:00)
[2018-06-27] MEDS ORDERED: EPINEPHrine HCL 1 MG/10 ML SYRG IV ONE (23:54)
== END 2018-06-27 23:55 | disposition expired | DRG 250 ==
LOC: ER 12:43 → CATH 1 12:51 → ICU WEST 12:52
PROVIDERS: ADMIT Specialist; ATTEND Internal Medicine
PROC: 5A1945Z Respiratory Ventilation, 24-96 Consecutive Hours (ICD-10-PCS; principal; 2018-06-19)
PROC: 02703ZZ Dilation of Coronary Artery, One Artery, Percutaneous Approach (ICD-10-PCS; 2018-06-19)
PROC: 047A3ZZ Dilation of Left Renal Artery, Percutaneous Approach (ICD-10-PCS; 2018-06-19)
PROC: 0BH17EZ Insertion of Endotracheal Airway into Trachea, Via Natural or Artificial Opening (ICD-10-PCS; 2018-06-19)
PROC: 5A09457 Assistance with Respiratory Ventilation, 24-96 Consecutive Hours, Continuous Positive Airway Pressure (ICD-10-PCS; 2018-06-19)
PROC: 5A09357 Assistance with Respiratory Ventilation, Less than 24 Consecutive Hours, Continuous Positive Airway Pressure (ICD-10-PCS; 2018-06-19)
PROC: 06HN33Z Insertion of Infusion Device into Left Femoral Vein, Percutaneous Approach (ICD-10-PCS; 2018-06-19)
PROC: B51C1ZA Fluoroscopy of Left Lower Extremity Veins using Low Osmolar Contrast, Guidance (ICD-10-PCS; 2018-06-19)
PROC: 4A133BC Monitoring of Arterial Pressure, Coronary, Percutaneous Approach (ICD-10-PCS; 2018-06-19)
PROC: 02HQ32Z Insertion of Monitoring Device into Right Pulmonary Artery, Percutaneous Approach (ICD-10-PCS; 2018-06-19)
PROC: 4A023N8 Measurement of Cardiac Sampling and Pressure, Bilateral, Percutaneous Approach (ICD-10-PCS; 2018-06-19)
PROC: B2111ZZ Fluoroscopy of Multiple Coronary Arteries using Low Osmolar Contrast (ICD-10-PCS; 2018-06-19)
DX: T82.867A Thrombosis due to cardiac prosthetic devices, implants and grafts, initial encounter (principal); I21.09 ST elevation (STEMI) myocardial infarction involving other coronary artery of anterior wall; J18.9 Pneumonia, unspecified organism; I50.43 Acute on chronic combined systolic (congestive) and diastolic (congestive) heart failure; J96.21 Acute and chronic respiratory failure with hypoxia; J96.22 Acute and chronic respiratory failure with hypercapnia; I13.0 Hypertensive heart and chronic kidney disease with heart failure and stage 1 through stage 4 chronic kidney disease, or unspecified chronic kidney disease; E87.2 Acidosis; N17.9 Acute kidney failure, unspecified; N39.0 Urinary tract infection, site not specified; Z51.5 Encounter for palliative care; Z66 Do not resuscitate; R57.0 Cardiogenic shock; N18.3 Chronic kidney disease, stage 3 (moderate); B96.20 Unspecified Escherichia coli [E. coli] as the cause of diseases classified elsewhere; D50.9 Iron deficiency anemia, unspecified; E11.22 Type 2 diabetes mellitus with diabetic chronic kidney disease; E78.5 Hyperlipidemia, unspecified; G47.00 Insomnia, unspecified; K59.00 Constipation, unspecified; F41.9 Anxiety disorder, unspecified; I25.119 Atherosclerotic heart disease of native coronary artery with unspecified angina pectoris; I25.2 Old myocardial infarction; I25.5 Ischemic cardiomyopathy; I25.82 Chronic total occlusion of coronary artery; I35.0 Nonrheumatic aortic (valve) stenosis; I70.0 Atherosclerosis of aorta; M10.9 Gout, unspecified; M81.0 Age-related osteoporosis without current pathological fracture; Y83.1 Surgical operation with implant of artificial internal device as the cause of abnormal reaction of the patient, or of later complication, without mention of misadventure at the time of the procedure; Z16.12 Extended spectrum beta lactamase (ESBL) resistance; Z82.49 Family history of ischemic heart disease and other diseases of the circulatory system; Z82.5 Family history of asthma and other chronic lower respiratory diseases; Z86.19 Personal history of other infectious and parasitic diseases; Z88.1 Allergy status to other antibiotic agents; Z88.8 Allergy status to other drugs, medicaments and biological substances
CPT/HCPCS: 31500; 36415; 36600; 37246; 71045; 80048; 80053; 80076; 80202; 81001; 82040; 82248; 82805; 82962; 83735; 83880; 84100; 84478; 84484; 85007; 85014; 85018; 85025; 85027; 85610; 85730; 86850; 86900; 86901; 87040; 87070; 87081; 87086; 87205; 93005; 93306; 93460; 93503; 94002; 94003; 94640; 94660; 96361; 96365; 96375; 96379; 99152; A6257; C1887; J0153; J0171; J0696; J1335; J1815; J2001; J2250; J2405; J3480; J3490; J7060; J7131; Q9967